=== PATIENT | male | born 1975 | race Caucasian/White ===

== ENCOUNTER 2024-02-22 13:30 | Day surgery (SDC) | payer OTHER, SELFPAY ==
[2024-02-22] VITALS (14 sets, daily range): BP systolic 105–153; BP diastolic 66–104; BMI 36.5
--- NOTE | 2024-02-22 09:44 | ED.GENMED ---
History of Present Illness
General
Chief Complaint: Abdominal Pain
Source: patient
Time Seen by Provider: 02/22/24 09:33
Travel History
Have you had any contact with someone who has COVID-19?: No
Do you have any symptoms of coronavirus? Fever > 100 degrees, chills, cough, shortness of breath, sore throat, loss of taste or smell, muscle aches, or headache?: No
History of Present Illness
History of Present Illness:
48-year-old male with no significant past medical history presenting to the emergency department for evaluation of upper abdominal pain that began last night around 9 PM described to be a constant aching/throbbing/sharp pain lasting approximately 3
hours, intense, radiating from the epigastrium down towards the periumbilical area and around and into his back, unrelieved with Tums, resolved spontaneously and is currently maybe a 1 out of 10. Patient denies any associated nausea, vomiting,
bowel changes, urinary symptoms, change in oral intake, chest pain, shortness of breath, palpitations, diaphoresis or any other concerns. States he had a similar episode around 1 month ago but this was not as intense as yesterday. Patient states
other than the episode a month ago he has never had anything similar. States he had naan pizza for dinner last night which is a fairly typical dinner and nothing out of the ordinary. Social history was noncontributory. Family history was negative
for any cardiac disease nor aneurysms.
Past History
Past History
ED Past Medical History: None
ED Past Surgical History: None
Social History
Tobacco: Non-smoker
Alcohol: None
Drug: None
Personal:
Living: with family
Employment: Employed
Review of Systems
Review of Systems
All Other Systems: ROS reviewed and negative except as documented in HPI and ROS
Phy Exam
Physical Exam
Physical Exam:
GENERAL: Alert , in no apparent distress
EYE: clear conjunctiva b/l
HEAD: NCAT
ENT: o/p clr, mmm.
CARDIAC: Regular rate and rhythm, no murmur.
LUNGS: Clear breath sounds bilaterally, no acute respiratory distress, no wheezes/rales/rhonchi
ABDOMEN: Soft, epigastric and right upper quadrant tenderness, no r/g, no cvat, negative Almanza sign, no tenderness at McBurney's point
NEUROLOGICAL: Alert and oriented
SKIN: Warm and dry, skin intact.
MUSCULOSKELETAL: well perfused.
PSYCH: Normal and appropriate interaction.
Scores
Heart Failure Risk
Heart Failure Risk Score: Not Applicable
Heart Score for Chest Pain Patients
STEMI patient?: Not applicable
Withdrawal Assessment of Alcohol
Withdrawal Assessment Completed?: Not applicable
Course
Orders/Labs/Results
Orders:
Orders
02/22/24 Breakfast
NPO
Allow oral meds: Yes
Allow clear liquids: No
02/22/24 09:35
Electrocardiogram (*1) Urgent
Reason for Study: Abdominal Pain
02/22/24 09:36
EKG- Treatment ONCE
02/22/24 09:44
US Abdomen Complete/Upper Urgent
Comment:
Reason For Exam: upper abd/RUQ pain
02/22/24 09:48
Complete Blood Count/With Diff Urgent
Comprehensive Metabolic Panel Urgent
Lipase Urgent
Troponin I Urgent
02/22/24 11:44
HYDROmorphone [Dilaudid] 0.25 mg IV PACU-Q5MPRN PRN
HYDROmorphone [Dilaudid] 0.5 mg IV PACU-Q5MPRN PRN
Meperidine [Demerol] 12.5 mg IV PACU-Q5MPRN PRN
Ondansetron Injectable [Zofran] 4 mg IV PACU-ONCEPRN PRN
Prochlorperazine [Compazine] 5 mg IV PACU-ONCEPRN PRN
Notify MD As Directed
Notify physician if: for SDS patients with known or suspected sleep obstructive sleep apnea, monitor in the
PACU.
Notify MD for any apneic/desaturation episodes
O2 Therapy [RESP] Urgent
Titrate/Wean O2 to maintain O2 sat greater than (%): 92
Special Instructions: -Provide supplemental oxygen to achieve O2 sat of 92% or greater.
-After 15 min, may wean O2 and discontinue if patient is able to maintain O2 sat of 92%
or greater during recovery period.
If patient is a discharge home, without oxygen therapy, notify anestheiologist if
unable to maintain O2 SAT of 92% or greater on room air for MD clearance.
02/22/24 11:45
Normosol (Mult Electrolytes) [Normosol-R] 1,000 ml IV PER PROTOCOL
02/22/24 12:07
Admit/Transfer Patient As Directed
Co-Sign Provider:
Level of Care: Post Proc/Surg Recovery
Assign to:: Medical/Surgical
Physician / Group: Avinash/general surgery
Diagnosis: biliary colic
Reason for Overnight Stay: Standard of Care
02/22/24 12:08
Code Status As Directed
Resuscitation Status: Full Code
02/22/24 12:11
Ciprofloxacin 400 mg/[id number] [Cipro 400 mg] 200 ml IV NOW
MetroNIDAZOLE 500 MG/100 ML [Flagyl 500 mg] 100 ml IV ONCE
Abnormal Lab Results
02/22/24
09:48
MCHC 32.5 L g/dL
(33.0-37.0)
MPV 11.9 H fL
(7.4-10.4)
Absolute Monos (auto) 0.8 H 10^3/uL
(0.1-0.6)
Monocytes % 10.1 H %
(1.7-9.3)
AST 233 H U/L
(17-59)
ALT 252 H U/L
(0-50)
Alkaline Phosphatase 147 H U/L
(38-126)
02/22/24 09:48
02/22/24 09:48
Vital Signs
Initial and Last Documented VS:
Initial Vital Signs
Temp Pulse Resp BP Pulse Ox
97.7 F 70 20 148/104 98
02/22/24 08:39 02/22/24 08:39 02/22/24 08:39 02/22/24 08:39 02/22/24 08:39
Last Documented Vital Signs
Temp Pulse Resp BP Pulse Ox
97.7 F 70 19 128/89 99
02/22/24 08:39 02/22/24 11:00 02/22/24 11:00 02/22/24 11:00 02/22/24 11:00
MDM/Problems Addressed
Differential Diagnosis Includes:
GERD, gastritis, peptic ulcer disease, pancreatitis, cholecystitis, atypical ACS presentation
MDM/Problems Addressed:
48-year-old male presenting emergency department for evaluation of abdominal pain that started last night, intense for about 3 hours and then mostly resolved, currently 1 out of 10. Patient states he took Tums last night with no relief. 1 previous
episode around a month ago. He does have some reproducible epigastric and right upper quadrant tenderness. Will check labs including an EKG and troponin for an atypical ACS presentation however patient has minimal risk factors. Ultrasound of the
abdomen ordered. Patient declining anything for symptoms at this time. Reassessment following.
*Radiology
Radiology exam reviewed: radiology read reviewed
*Pulse Oximetry
Patient hypoxic: no
*EKG
Interpreted by ED Provider?: Yes
Comparison EKG: no comparison EKG present
Heart Rate: 75
Rate: normal
Rhythm: sinus
[address]: normal axis
Ischemia: no ischemia
*Wastewater Treatment Supervisor Interpretation
Rate: normal
Rhythm: sinus
*Critical Care Note
Total Time (30-74mins, 75-104mins- exclusive of procedures): Not Applicable
Patient Management
Discussion with other providers: Swimming Professor
Escalation/DeEscalation of care consider admission/obs:
Patients US shows cholelithiasis without evidence for acute cholecystitis. Patient does have transaminitis elevation. Total bilirubin is within normal limits and white blood cell count is within normal limits. I notified general surgery team who
came to the emergency department to evaluate the patient and they discussed risk versus benefit of surgery versus medical management and patient ultimately decided to proceed with surgical intervention. General surgery to admit. Patient advised to
remain NPO.
ED Attending Note
-
Portions of this chart may have been created with voice recognition software.� Occasional wrong word or��sound alike� substitutions may have occurred due to the inherent limitations of voice recognition software.
Discharge Plan
Departure
Patient Disposition: Admit
Date of Disposition: 02/22/24
Time of Disposition: 12:02
Presentation/result/management discussed w/ accepting MD/DO: Avinash
Discharge Problem:
Symptomatic cholelithiasis
Referrals:
Syd Morales MD [Family Provider] -
Interventions
Interventions:
*Risk Screen - Suicide Last Done: 02/22/24 08:39
*General Assessment Last Done: 02/22/24 08:39
*Neglect/Abuse Screening Last Done: 02/22/24 08:39
ED- Fall Risk Assessment Last Done: 02/22/24 09:34
*ED COVID-19 Vaccine History Last Done: 02/22/24 09:34
YP-Oufwvz-Sdatamhfta Assessment Last Done: 02/22/24 09:34
Discharge Date and Time
Print Language: MARSHALLESE
[2024-02-22 09:58] LABS: % Basophils 0.5 % (0-2); % Eosinophils 2.3 % (0-6); % Immature Granulocytes 0.4 % (0-0.5); % Monocytes 10.1 % (1.7-9.3); % Neutrophils 62.7 % (42.2-75.2); Absolute Eosinophils 0.2 10^3/uL (0-0.7); Absolute Lymphocytes 1.9 10^3/uL (1.2-3.4); Absolute Monocytes 0.8 10^3/uL (0.1-0.6); Hematocrit 46.1 % (39.0-52.0); Mean Corp Hgb Conc. 32.5 g/dL (33.0-37.0); Mean Corpuscular Hgb 28.2 pg (27.0-31.0); Mean Corpuscular Volume 86.8 fL (80.0-94.0); Mean Platelet Volume 11.9 fL (7.4-10.4); Nucleated Red Blood Cells % 0 % (-); Platelet Count 242 10^3/uL (130-400); Red Blood Cell Count 5.31 10^6/uL (4.70-6.10)
[2024-02-22 10:08] LABS: ALT (SGPT) 252 U/L (0-50); AST (SGOT) 233 U/L (17-59); Albumin 4.3 g/dl (3.5-5.0); Alkaline Phosphatase 147 U/L (38-126); Blood Urea Nitrogen 13 mg/dl (9-20); Carbon Dioxide 27 mmol/L (22-30); Chloride 106 mmol/L (98-107); Estimated Creatinine Clearance 123 ml/min; Glucose 94 mg/dl (70-99); Lipase 93 U/L (23-300); Potassium 4.4 mmol/L (3.5-5.1); Sodium 140 mmol/L (135-145); Total Bilirubin 0.9 mg/dl (0.2-1.3); Total Protein 7.4 g/dl (6.3-8.2); eGFR > 60.00
[2024-02-22 10:18] LABS: Troponin I < 0.012 ng/ml
--- NOTE | 2024-02-22 11:57 | HPS.HSE ---
Addendum entered and electronically signed by Sam Da Silva MD 02/22/24 12:10:
I saw and examined the patient independently.
The Computer Systems Administrator's note was reviewed and I agree with the note, assessment and plan except where noted below.
Comment: This is a 48-year-old male with no significant past medical or surgical history who presents with 1 day history of postprandial right upper quadrant pain in the setting of similar attack about a month ago. This pain was severe 10 out of 10
which prompted his visit to the emergency department. Here the pain is improved however he benzol still operator to palpation on the right upper quadrant. Ultrasound demonstrates gallstones but no other stigmata of acute cholecystitis. LFTs are mildly
elevated, will no leukocytosis. Exam, imaging, blood work all consistent with biliary colic versus early acute cholecystitis.
Discussed options with patient either or today versus close outpatient follow-up. Patient elected to proceed with surgery today.
N.p.o., IV fluids, IV Zosyn ordered.
Will plan for a laparoscopic cholecystectomy and possible cholangiogram in the OR today.
Dispo pending operative findings, possible discharge tonight versus tomorrow.
Risks/Benefits/Alternatives, expected postoperative course and possible complications (bleeding, infection, injury to surrounding structures, acute/chronic pain) discussed at length. Patient wishes to proceed with surgery. All questions answered.
Consent obtained.
I spent roughly 60 minutes in total for the care of this patient today including direct patient care and counseling, reviewing labs, imaging, coordination of care, as well as documentation.
Original Note:
Family Physician
-
Family Physician: Syd Morales
Chief Complaint
-
RUQ pain
History of Present Illness
48 yo male without any significant PMH/PSH who presents with acute onset of RUQ pain last night around 9pm after having pizza. He tried Tums to relieve his symptoms but without much benefit. He felt nauseated but did not vomit. He notes the pain was
very severe and unrelenting for about 3 hours radiating into his back and across his abdomen. He had a similar episode one month ago. He is currently more comfortable but there is tenderness to the RUQ on exam. He denies active nausea. He denies
fevers or chills. He denies bowel changes.
Medical History
Past Medical History
Past Medical History: Reports None
Past Surgical History: Reports None
Social History
Tobacco: Non-smoker
Alcohol: None
Personal:
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
Family History
Family History: Not pertinent
Allergies / Home Medications
Allergies reflects when Allergies were last updated in [employer].
Home Medications with original date entered in [employer]
Allergy/Medication List:
Patient Allergies
Allergy/AdvReac Type Severity Reaction Status Date / Time
Penicillins Allergy Unknown Verified 02/22/24 08:43
Patient takes no home meds
Review of Systems
-
A 12 point ROS was completed and negative except as noted: Yes
Physical Exam
Vital Signs
Vital Signs
Temp Pulse Resp BP Pulse Ox
97.7 F 70 19 128/89 99
02/22/24 08:39 02/22/24 11:00 02/22/24 11:00 02/22/24 11:00 02/22/24 11:00
Physical Exam
General: Well Developed and Well Nourished
HEENT: Moist mucous membranes
Respiratory: Non Labored Respirations
Cardiac: Regular Rhythm
GI: Soft, Non Distended and Tender (RUQ)
Skin: Warm and Dry; No Jaundice
Neuro: Awake, Alert and AO x 3
Psych: Anxious
Laboratory Results
-
02/22/24 09:48
02/22/24 09:48
Laboratory Results
Total Bilirubin 0.9 mg/dl (0.2-1.3) 02/22/24 09:48
AST 233 U/L (17-59) H 02/22/24 09:48
ALT 252 U/L (0-50) H 02/22/24 09:48
Alkaline Phosphatase 147 U/L (38-126) H 02/22/24 09:48
Troponin I < 0.012 ng/ml 02/22/24 09:48
Lipase 93 U/L (23-300) 02/22/24 09:48
Data Reviewed
-
Ultrasound: Image Personally Visualized and interpreted, Report Reviewed by me, Discussed with Physician and Discussed with Patient
Lab Data: Labs Reviewed by me, Discussed with Physician and Discussed with Patient
Old Records: Reviewed
Impression/Plan
-
IMPRESSION:
48 yo male presenting with biliary colic, second episode. US with cholelithiasis but no evidence of acute cholecystitis present. No leukocytosis. Bilirubin normal but mild transaminitis present. Afebrile. Stable vital signs.
PLAN:
Keep NPO for OR later today for laparoscopic cholecystectomy
Will give flagyl/cipro preop for surgical ppx
Analgesics prn
IVF while NPO
--- NOTE | 2024-02-22 14:39 | W.IMMPOSTOP ---
Surgical Immed Post Op Note
-
Primary Surgeon: Sam Da Silva MD
Assisting Surgeon: None
Pre-op Diagnosis: Acute cholecystitis
Post-op Diagnosis: Same
Procedure Performed: Laparoscopic cholecystectomy with cholangiogram
Anesthesia Type: General
Specimen / Cultures: Gallbladder and contents
Estimated Blood Loss: 7 cc
Complications: None
Operative Findings: Early acute cholecystitis. Some flimsy omental adhesions to the infundibulum that were lysed with electrocautery. Critical view of safety obtained prior to a cholangiogram which demonstrated a somewhat dilated cystic duct but
no distal filling defects and normal biliary anatomy. Duct ligated with a 5 mm clip followed by 0 PDS Endoloop. The small posterior cystic artery was identified and ligated with a 5 mm clip.
POST OP PLAN:
Imaging: None
Labs: Routine AM
Diet: Advance to Regular as tolerated
Analgesia: Tylenol 650mg q6 Neil, Malaika 5mg q6 PRN, Dilaudid 0.5mg q2h PRN
Neuro/vascular checks: q4h
AC/AP: Hold Therapeutic AC, Ok for DVT PPx
Activity: Ad Rocio
Wound/Incisions/Drains: Routine
Abx: None
Dispo: Anticipate discharge home today.
--- NOTE | 2024-02-22 14:40 | OR.RPT ---
Operative Report
Operative Report
Patient Name: Jose Milian
: 1975
Date of Operation: 02/22/2024
Preoperative Diagnosis: Acute cholecystitis
Postoperative Diagnosis: Same
Procedure(s):
Laparoscopic Cholecystectomy with Cholangiogram
Surgeon(s):
Dr. Da Silva
Mail Order Biller(s):
Osvaldo Cantu, PGY-1
Anesthesia: General
Estimated Blood Loss: 7 cc
Urine Output: None
Drains/Lines/Implants: None
Specimens:
1. Gallbladder and contents
HPI/Surgical Indications:
This is a 48-year-old male who presents with a 1 day history of postprandial right upper quadrant pain in setting of a another recent attack about a month ago. Exam, labs and imaging are consistent with biliary colic versus early acute
cholecystitis. Risks/Benefits/Alternatives were discussed at length, and the patient agreed to proceed with surgery.
Findings:
The patient was noted to have mild gallbladder inflammation with overlying omental adhesions and edema. A Critical View of Safety was obtained. A cholangiogram showed no filling defects in the biliary system with the Left, Right Anterior, Right
posterior hepatic ducts, CHD, cystic duct and CBD all identified. There was brisk flow of dye into the duodenum.
Procedure Description:
The patient was brought to the Operating Room and placed in the supine position with one arm tucked. Following uneventful induction of general endotracheal anesthesia, an orogastric tube was placed. The abdomen was prepped and draped in the usual
sterile fashion. A timeout was performed confirming the procedure, consent, and that IV antibiotics were infused and sequential compression devices were confirmed to be on. The abdomen was entered using a left subcostal Veress technique which
required 1 pass followed by a right upper quadrant 5 mm Optiview trocar. Pneumoperitoneum to 15 mmHg pressure was obtained without difficulty and we confirmed that no injury had occurred during our entry. The patient was positioned in reverse
Trendelenberg and rotated with the right side up slightly. Two 5mm trocars were then placed along the right subcostal margin, followed by a 12 mm port in the epigastrium. A locking grasping forceps was placed on the fundus of the gallbladder where
it was then retracted cephalad and to the right. Using appropriate grasping instruments, the peritoneum overlying the triangle of Calot was incised and extended superiorly on both the anterior and posterior gallbladder levi. The infundibulum was
dissected off the cystic plate. The cystic triangle was dissected until a critical view of safety was achieved. The cystic artery was medialized, dissected and controlled with 2 proximal clips and 1 distal. The cystic duct/gallbladder junction in
turn was identified, dissected circumferentially and a clip was placed. A ductotomy was made and a cholangiocatheter on an Conde clamp was inserted into the cystic duct. A C-arm was draped and brought into the field. An intra-operative cholangiogram
was performed and was noted to have:
No filling defects in the biliary tree
No significant biliary dilation
Brisk flow of contrast into the duodenum
Normal biliary anatomy
The catheter was then removed and the cystic duct was controlled with a clip followed by 0 PDS Endoloop. After ensuring both the artery and duct were divided, the gallbladder was freed from the liver using electrocautery. There is no spillage of
bile or stones. The gallbladder bed was inspected and excellent hemostasis was obtained. The gallbladder was extracted through the 12 mm trocar site using an endocatch bag which was then closed with a 0 PDS using a Adi Coon. The abdomen was
again irrigated and excellent hemostasis was assured. All remaining trocars were then removed and the pneumoperitoneum was evacuated. All trocar sites were closed at the skin level using 4-0 Monocryl followed by Dermabond. Overall, the patient
tolerated the procedure well and was taken to the Recovery Room postoperatively in stable condition.
I was the attending physician and performed the procedure with assistance from the resident above. I was present for all portions of the case.
Sam Da Silva MD
[2024-02-22] MEDS: DILAUDID 0.5 MG IV (14:58)
[2024-02-22] MEDS: ROXICODONE 5 MG PO (16:02)
== END 2024-02-22 17:58 | disposition home or self-care (01) ==
LOC: PACU 13:30
PROVIDERS: Physician Assistant Medical; ATTENDING PHYSICIAN Surgery; EMERGENCY PHYSICIAN Emergency Medicine; FAMILY PHYSICIAN Internal Medicine
DX: K80.10 Calculus of gallbladder with chronic cholecystitis without obstruction (principal)
CPT/HCPCS: 47563; 88304; 74301; 76000; 76700; 80053; 83690; 84484; 85025; 93005; 99285; A4300